=== PATIENT | female | born 1995 | race Hispanic/Latino ===

== ENCOUNTER 2021-11-27 18:56 | Emergency (ER) | payer OTHER ==
[~2021-11-27] VITALS: Ht 160 cm; Wt 86.2 kg
[2021-11-27] MEDS ORDERED: FAMOTIDINE 20 MG/2 ML VIAL IV STA (19:43)
[2021-11-27] MEDS ORDERED: ONDANSETRON HCL INJ 2MG/ML 2ML 2 MG/ML VIAL IV STA (19:43)
[2021-11-27] MEDS ORDERED: SODIUM CHLORIDE 0.9% 1000ML 1,000 ML IV SCH (19:45)
[2021-11-27] MEDS ORDERED: SODIUM CHLORIDE 0.9% 1000ML 1,000 ML ONE (19:53)
[2021-11-27] MEDS ORDERED: FAMOTIDINE 20 MG/2 ML VIAL IV ONE (19:53)
[2021-11-27] MEDS ORDERED: ONDANSETRON HCL INJ 2MG/ML 2ML 2 MG/ML VIAL ONE (19:53)
[2021-11-27] MEDS ORDERED: PROMETHAZINE HC25 M1 PO (21:07)
[2021-11-27] MEDS ORDERED: FAMOTIDINE40 MG PO (21:13)
[2021-11-27] MEDS ORDERED: KETOROLAC TROMETHAMINE 30 MG/ML VIAL IV STA (21:15)
[2021-11-27] MEDS ORDERED: KETOROLAC TROMETHAMINE 30 MG/ML VIAL ONE (21:30)
== END 2021-11-27 22:05 | disposition home or self-care (01) ==
LOC: FSED 20:01
DX: R11.2 Nausea with vomiting, unspecified (principal); R19.7 Diarrhea, unspecified; T40.995A Adverse effect of other psychodysleptics [hallucinogens], initial encounter
CPT/HCPCS: 80048; 80076; 81003; 81025; 85025; 99283; J1885; J2405; J7030